=== PATIENT | male | born 1940 | race Native Hawaiian/Other Pacific Islander ===

== ENCOUNTER 2017-01-06 08:08 | Outpatient (CLI) | payer OTHER, BC ==
[~2017-01-06 08:08] MED LIST: ALLEGRA ALRG180 M1 PO; AMLO5TAB PO; AVAPRO75 MG PO; BENZONATATE200 MG PO; CEFTIN250 MG OR; CELEBREX200 MG PO; CLARITIN10 MG PO; DOXA2TAB PO; ENDOCET1 TA1 PO; ENTERIC COATED325 MG PO; FERROUS SULF325 M1 PO; FISH OIL1000 M1 OR; FLAXSEED OIL1000 M1 OR; FLUT0.05 NAS; GLUCOSAMINE CHONDRO1 OR; IRBESARTAN75 MG OR; LIPITOR20 MG PO; METF500T PO; NASONEX50 MCG/AC; PRILOSEC20 MG OR; SIMV20TA2 PO; Z-PAK PO
== END 2017-01-06 09:08 | disposition home or self-care (01) ==
LOC: LABW 08:08
PROVIDERS: Specialist
DX: E78.2 Mixed hyperlipidemia (principal); Z79.899 Other long term (current) drug therapy; Z51.81 Encounter for therapeutic drug level monitoring
CPT/HCPCS: 36415; 80061; 80076

== ENCOUNTER 2017-02-08 08:56 | Outpatient (CLI) | payer OTHER, BC ==
[2017-02-08 10:05] LABS: PLATELET COUNT 192 K/uL (142-355)
[2017-02-08 11:22] LABS: POTASSIUM 4.2 mmol/L (3.6-5.2); SODIUM 138 mmol/L (136-145)
== END 2017-02-08 19:19 | disposition home or self-care (01) ==
LOC: LABW 08:56
PROVIDERS: Specialist
DX: Z01.810 Encounter for preprocedural cardiovascular examination (principal); R93.1 Abnormal findings on diagnostic imaging of heart and coronary circulation
CPT/HCPCS: 36415; 80053; 85027

== ENCOUNTER 2017-02-15 08:41 | Outpatient (CLI) | payer OTHER, BC ==
[2017-02-15 09:26] LABS: POTASSIUM 4.4 mmol/L (3.6-5.2); SODIUM 139 mmol/L (136-145)
== END 2017-02-15 19:22 | disposition home or self-care (01) ==
LOC: LABW 08:41
PROVIDERS: Specialist
DX: R35.8 Other polyuria (principal)
CPT/HCPCS: 36415; 80048

== ENCOUNTER 2017-04-22 12:00 | Outpatient (CLI) | payer OTHER, BC | END 2017-04-22 19:18 | disposition home or self-care (01) | LOC: RAD 12:00 | DX: M25.511 Pain in right shoulder (principal) ==

== ENCOUNTER 2017-07-05 09:10 | Outpatient (CLI) | payer OTHER, BC | END 2017-07-05 10:10 | disposition home or self-care (01) | LOC: LABW 09:10 | PROVIDERS: Nurse Practitioner Adult Health | DX: I25.10 Atherosclerotic heart disease of native coronary artery without angina pectoris (principal); E78.2 Mixed hyperlipidemia; Z79.899 Other long term (current) drug therapy; Z51.81 Encounter for therapeutic drug level monitoring | CPT/HCPCS: 36415; 80061; 80076 ==

== ENCOUNTER 2017-12-23 05:43 | Outpatient (CLI) | payer OTHER, BC ==
[2017-12-23 06:42] LABS: PLATELET COUNT 190 K/uL (142-355)
== END 2017-12-23 05:54 | disposition home or self-care (01) ==
LOC: LABW 05:43
PROVIDERS: Internal Medicine
DX: E11.9 Type 2 diabetes mellitus without complications (principal); Z12.5 Encounter for screening for malignant neoplasm of prostate; E78.00 Pure hypercholesterolemia, unspecified
CPT/HCPCS: 36415; 80053; 80061; 81000; 82043; 82570; 83036; 84153; 84443; 85027

== ENCOUNTER 2018-07-18 07:52 | Outpatient (CLI) | payer OTHER, BC | END 2018-07-18 20:37 | disposition home or self-care (01) | LOC: LABW 07:52 | PROVIDERS: Nurse Practitioner Adult Health | DX: E78.2 Mixed hyperlipidemia (principal); Z79.899 Other long term (current) drug therapy | CPT/HCPCS: 36415; 80061; 80076 ==

== ENCOUNTER 2018-11-01 16:46 | Outpatient (CLI) | payer OTHER, BC ==
[2018-11-01 17:02] LABS: PLATELET COUNT 186 K/uL (142-355)
[2018-11-01 17:41] LABS: POTASSIUM 4.1 mmol/L (3.6-5.2)
== END 2018-11-01 22:04 | disposition home or self-care (01) ==
LOC: LABW 16:46
PROVIDERS: Internal Medicine
DX: Z00.00 Encounter for general adult medical examination without abnormal findings (principal); Z12.5 Encounter for screening for malignant neoplasm of prostate; E11.9 Type 2 diabetes mellitus without complications
CPT/HCPCS: 36415; 80053; 80061; 81000; 82043; 82570; 83036; 84153; 84439; 84443; 85027

== ENCOUNTER 2018-11-21 08:33 | Outpatient (CLI) | payer OTHER, BC | END 2018-11-21 18:58 | disposition home or self-care (01) | LOC: US 08:33 | DX: Z13.6 Encounter for screening for cardiovascular disorders (principal) ==

== ENCOUNTER 2019-07-08 08:12 | Outpatient (CLI) | payer OTHER, BC ==
[2019-07-08 08:35] LABS: PLATELET COUNT 179 K/uL (142-355)
[2019-07-08 08:50] LABS: POTASSIUM 4.3 mmol/L (3.6-5.2)
== END 2019-07-08 22:11 | disposition home or self-care (01) ==
LOC: LABW 08:12
PROVIDERS: Internal Medicine
DX: E11.9 Type 2 diabetes mellitus without complications (principal)
CPT/HCPCS: 36415; 80053; 80061; 81000; 82043; 82570; 83036; 84439; 84443; 85027

== ENCOUNTER 2020-01-15 08:22 | Outpatient (CLI) | payer OTHER, BC | END 2020-01-15 19:49 | disposition home or self-care (01) | LOC: LABW 08:22 | PROVIDERS: Nurse Practitioner Adult Health | DX: E78.2 Mixed hyperlipidemia (principal); Z79.899 Other long term (current) drug therapy | CPT/HCPCS: 36415; 80061; 80076 ==

== ENCOUNTER 2020-09-26 08:07 | Outpatient (CLI) | payer OTHER, BC ==
[2020-09-26 08:54] LABS: POTASSIUM 3.9 mmol/L (3.6-5.2)
[2020-09-26 09:50] LABS: PLATELET COUNT 157 K/uL (142-355)
== END 2020-09-26 20:17 | disposition home or self-care (01) ==
LOC: LABW 08:07
PROVIDERS: Internal Medicine
DX: E11.9 Type 2 diabetes mellitus without complications (principal)
CPT/HCPCS: 36415; 80053; 80061; 81000; 82043; 82570; 83036; 84439; 84443; 85027

== ENCOUNTER 2020-11-27 09:03 | Outpatient (CLI) | payer BC | END 2020-11-27 21:39 | disposition home or self-care (01) | LOC: LABW 09:03 | PROVIDERS: ATTEND Nurse Practitioner Adult Health | DX: E78.2 Mixed hyperlipidemia (principal); Z79.899 Other long term (current) drug therapy | CPT/HCPCS: 36415; 80061; 80076 ==

== ENCOUNTER 2021-05-28 09:49 | Outpatient (CLI) | payer BC | END 2021-05-28 22:12 | disposition home or self-care (01) | LOC: LAB 09:49 | PROVIDERS: ATTEND Internal Medicine | DX: Z00.00 Encounter for general adult medical examination without abnormal findings (principal); E11.9 Type 2 diabetes mellitus without complications; Z12.5 Encounter for screening for malignant neoplasm of prostate | CPT/HCPCS: 36415; 83036 ==

== ENCOUNTER 2021-09-16 08:31 | Outpatient (CLI) | payer BC ==
[2021-09-16 09:02] LABS: PLATELET COUNT 207 K/uL (142-355)
== END 2021-09-16 20:03 | disposition home or self-care (01) ==
LOC: LABW 08:31
PROVIDERS: ATTEND Internal Medicine
DX: E11.9 Type 2 diabetes mellitus without complications (principal)
CPT/HCPCS: 36415; 80053; 80061; 81000; 82043; 83036; 84439; 84443; 85027

== ENCOUNTER 2022-01-30 12:11 | Emergency (ER) | payer BC ==
[~2022-01-30] VITALS: Ht 177.8 cm; Wt 79.4 kg
[2022-01-30 12:51] LABS: PLATELET COUNT 145 K/uL (142-355)
[2022-01-30 13:04] LABS: POTASSIUM 4.3 mmol/L (3.6-5.2)
[2022-01-30 14:00] VITALS: BP 181/75; TEMP 98.20
== END 2022-01-30 14:00 | disposition home or self-care (01) ==
LOC: ED 12:11
PROVIDERS: Emergency Medicine
DX: M25.552 Pain in left hip (principal); R42 Dizziness and giddiness; R06.02 Shortness of breath; W18.2XXA Fall in (into) shower or empty bathtub, initial encounter; Y92.89 Other specified places as the place of occurrence of the external cause
CPT/HCPCS: 36600; 80053; 82805; 84484; 85027; 85610; 93005; 99283

== ENCOUNTER 2022-02-02 14:54 | Outpatient (CLI) | payer BC | END 2022-02-02 20:16 | disposition home or self-care (01) | LOC: LABW 14:54 | PROVIDERS: ATTEND Internal Medicine | DX: D64.9 Anemia, unspecified (principal); R63.4 Abnormal weight loss | CPT/HCPCS: 36415; 82150; 82607; 82728; 82747; 83540; 83550; 83690 ==

== ENCOUNTER 2022-02-03 13:09 | Outpatient (CLI) | payer BC | END 2022-02-03 19:04 | disposition home or self-care (01) | LOC: LAB 13:09 | PROVIDERS: ATTEND Internal Medicine | DX: D64.89 Other specified anemias (principal) | CPT/HCPCS: 82272 ==

== ENCOUNTER 2022-02-04 07:24 | Outpatient (CLI) | payer BC | END 2022-02-04 19:00 | disposition home or self-care (01) | LOC: CT 07:24 → LAB 07:24 → CT 08:00 | PROVIDERS: ATTEND Internal Medicine | DX: R41.82 Altered mental status, unspecified (principal); R10.32 Left lower quadrant pain; D64.89 Other specified anemias | CPT/HCPCS: 82272; Q9963 ==

== ENCOUNTER 2022-02-06 09:27 | Outpatient (CLI) | payer BC | END 2022-02-06 19:33 | disposition home or self-care (01) | LOC: MRI 09:27 | PROVIDERS: ATTEND Internal Medicine | DX: R41.82 Altered mental status, unspecified (principal) ==

== ENCOUNTER 2022-02-09 11:11 | Outpatient (CLI) | payer BC | END 2022-02-09 19:11 | disposition home or self-care (01) | LOC: LAB 11:11 | PROVIDERS: ATTEND Internal Medicine | DX: D64.89 Other specified anemias (principal) | CPT/HCPCS: 82272 ==

== ENCOUNTER 2022-02-18 08:52 | Emergency (ER) | payer BC ==
[~2022-02-18] VITALS: Ht 177.8 cm; Wt 97.1 kg
[2022-02-18 08:52] VITALS: TEMP 97.6
[2022-02-18 09:13] LABS: PLATELET COUNT 167 K/uL (142-355)
[2022-02-18 09:23] LABS: POTASSIUM 3.3 mmol/L (3.6-5.2)
[2022-02-18 09:29] LABS: PARTIAL THROMBOPLASTIN TIME 24.1 SECONDS (24.5-33.6)
[2022-02-18 10:33] VITALS: BP 162/75
== END 2022-02-18 11:24 | disposition short-term general hospital (02) ==
LOC: ED 08:52
PROVIDERS: Hospitalist
PROC: 0T9B70Z Drainage of Bladder with Drainage Device, Via Natural or Artificial Opening (ICD-10-PCS; principal; 2022-02-18)
DX: I63.89 Other cerebral infarction (principal); G81.91 Hemiplegia, unspecified affecting right dominant side; R29.810 Facial weakness; Z79.02 Long term (current) use of antithrombotics/antiplatelets; Z11.52 Encounter for screening for COVID-19
CPT/HCPCS: 51702; 80053; 80320; 81000; 82550; 83880; 84484; 85027; 85610; 85730; 87635; 92977; 93005; 96365; 96375; 99285; J2997; J3490; U0003

== ENCOUNTER 2022-02-24 15:41 | Inpatient (IN) | payer BC ==
[~2022-02-24] VITALS: Ht 179.1 cm; Wt 88.6 kg
[~2022-02-24 15:41] MED LIST changes: -LIPITOR20 MG PO; +LIPITOR40 MG PO
[2022-02-24 17:44] VITALS: BP 151/58; TEMP 98.4; Ht 179.1 cm; Wt 88.6 kg
[2022-02-24 20:04] VITALS: BP 112/48; TEMP 98.3
[2022-02-25 08:13] VITALS: BP 142/61; TEMP 97.6
[2022-02-25] MEDS ORDERED: FEROSUL325 MG PO (09:17)
[2022-02-25] MEDS ORDERED: CYAN10009 IM (09:19)
[2022-02-25] MEDS ORDERED: FINASTERIDE5 MG PO (09:21)
[2022-02-25] MEDS ORDERED: PANTOPRAZOLE SO40 M1 PO (09:24)
[2022-02-25] MEDS ORDERED: GLUCERN1 PO (09:25)
[2022-02-25 20:00] VITALS: BP 157/79; TEMP 98.2
[2022-02-26 07:18] VITALS: BP 145/63; TEMP 98.5
[2022-02-26 20:00] VITALS: BP 151/72; TEMP 98.3
[2022-02-27 08:00] VITALS: BP 150/65; TEMP 98.5
[2022-02-27 20:06] VITALS: BP 149/65; TEMP 97.9
[2022-02-28 08:00] VITALS: BP 154/71; TEMP 98
[2022-02-28 20:00] VITALS: BP 144/60; TEMP 98.8
[2022-03-01 07:52] VITALS: BP 161/65; TEMP 97.7
[2022-03-01 19:50] VITALS: BP 157/61; TEMP 98.4
[2022-03-02 08:00] VITALS: BP 153/71; TEMP 98.4
[2022-03-02 20:00] VITALS: BP 144/59; TEMP 99.3
[2022-03-03 08:00] VITALS: BP 147/59; TEMP 98.7
[2022-03-03 20:00] VITALS: BP 142/64; TEMP 99.4
[2022-03-04 08:00] VITALS: BP 131/69; TEMP 98.4
[2022-03-04 19:50] VITALS: BP 140/62; TEMP 99.1
[2022-03-05 08:00] VITALS: BP 129/70; TEMP 98.1
[2022-03-05 19:55] VITALS: BP 144/61; TEMP 97.8
[2022-03-06 08:00] VITALS: BP 137/70; TEMP 98.2
[2022-03-06 20:00] VITALS: BP 158/72; TEMP 98.8
[2022-03-07 08:00] VITALS: BP 139/71; TEMP 99.1
[2022-03-07 20:00] VITALS: BP 134/74; TEMP 99
[2022-03-08 08:00] VITALS: BP 175/59; TEMP 98.2
[2022-03-08 20:00] VITALS: BP 138/66; TEMP 98.8
[2022-03-09 08:00] VITALS: BP 140/66; TEMP 98.7
[2022-03-09 20:00] VITALS: BP 153/64; TEMP 99
[2022-03-10 08:00] VITALS: BP 146/65; TEMP 97.4
[2022-03-10 20:00] VITALS: BP 129/53; TEMP 98.8
[2022-03-11 08:00] VITALS: BP 139/67; TEMP 98.6
[2022-03-11 20:00] VITALS: BP 121/63; TEMP 99.5
[2022-03-12 08:00] VITALS: BP 148/72; TEMP 97.9
[2022-03-12 20:00] VITALS: BP 138/51; TEMP 98.1
[2022-03-13 19:57] VITALS: BP 141/65; TEMP 98.7
[2022-03-14 07:55] VITALS: BP 131/57; TEMP 98.6
[2022-03-14 19:39] VITALS: BP 107/44; TEMP 99.6
[2022-03-15 05:52] LABS: PLATELET COUNT 207 K/uL (142-355)
[2022-03-15 05:57] LABS: POTASSIUM 3.6 mmol/L (3.6-5.2)
[2022-03-15 08:30] VITALS: BP 122/52; TEMP 97.8
[2022-03-15 09:20] VITALS: BP 122/52; TEMP 97.8
[2022-03-15 11:20] VITALS: BP 153/65; TEMP 98.2
== END 2022-03-15 19:27 | disposition short-term general hospital (02) | DRG 65 ==
LOC: SWING 15:41 → MED/SURG 16:19
PROVIDERS: ADMIT Internal Medicine Endocrinology, Diabetes & Metabolism; ATTEND Internal Medicine Endocrinology, Diabetes & Metabolism
DX: I63.19 Cerebral infarction due to embolism of other precerebral artery (principal); I69.351 Hemiplegia and hemiparesis following cerebral infarction affecting right dominant side; E11.9 Type 2 diabetes mellitus without complications; I44.0 Atrioventricular block, first degree; D64.9 Anemia, unspecified; R26.2 Difficulty in walking, not elsewhere classified; R26.81 Unsteadiness on feet; M62.81 Muscle weakness (generalized); Z74.1 Need for assistance with personal care; R48.8 Other symbolic dysfunctions; I10 Essential (primary) hypertension; E78.5 Hyperlipidemia, unspecified
CPT/HCPCS: 36415; 80048; 85014; 85018; 85027; 85610; 87081; J2405; J3490

== ENCOUNTER 2022-03-12 13:00 | Outpatient (CLI) | payer BC ==
[~2022-03-12 13:00] MED LIST changes: +CYAN10009 IM; +FEROSUL325 MG PO; +FINASTERIDE5 MG PO; +GLUCERN1 PO; +PANTOPRAZOLE SO40 M1 PO
== END 2022-03-12 18:00 | disposition home or self-care (01) ==
LOC: CT 13:00
PROVIDERS: ATTEND Physician Assistant
DX: R93.5 Abnormal findings on diagnostic imaging of other abdominal regions, including retroperitoneum (principal); R63.4 Abnormal weight loss
CPT/HCPCS: Q9963

== ENCOUNTER 2022-03-15 19:27 | Inpatient (IN) | payer BC ==
[~2022-03-15] VITALS: Ht 177.8 cm; Wt 87.8 kg
[2022-03-15 20:12] VITALS: BP 130/63; TEMP 98.5
[2022-03-15 20:57] VITALS: BP 130/63; TEMP 98.5; Ht 177.8 cm; Wt 87.8 kg
[2022-03-15 22:57] VITALS: BP 142/55; TEMP 97.4
[2022-03-15 23:15] VITALS: BP 147/59; TEMP 97.8
[2022-03-16] VITALS (13 sets, daily range): BP systolic 119–188; BP diastolic 61–90; TEMP 97.2–99.3
[2022-03-17] VITALS: BP 152/71; TEMP 98.8
[2022-03-17 04:00] VITALS: BP 152/73; TEMP 97.5
[2022-03-17 08:00] VITALS: BP 153/75; TEMP 98.3
[2022-03-17 08:55] LABS: PLATELET COUNT 172 K/uL (142-355)
[2022-03-17 09:03] LABS: POTASSIUM 3.8 mmol/L (3.6-5.2)
[2022-03-17 12:00] VITALS: BP 144/72; TEMP 98
[2022-03-17 16:00] VITALS: BP 158/73; TEMP 99.1
== END 2022-03-17 16:54 | disposition home or self-care (01) | DRG 378 ==
LOC: MED/SURG 19:27
PROVIDERS: ADMIT Internal Medicine; ATTEND Internal Medicine
PROC: 30233N1 Transfusion of Nonautologous Red Blood Cells into Peripheral Vein, Percutaneous Approach (ICD-10-PCS; principal; 2022-03-15)
PROC: 30233N1 Transfusion of Nonautologous Red Blood Cells into Peripheral Vein, Percutaneous Approach (ICD-10-PCS; 2022-03-16)
DX: K92.2 Gastrointestinal hemorrhage, unspecified (principal); D62 Acute posthemorrhagic anemia; R04.2 Hemoptysis; I10 Essential (primary) hypertension; E78.49 Other hyperlipidemia; N40.0 Benign prostatic hyperplasia without lower urinary tract symptoms; K21.9 Gastro-esophageal reflux disease without esophagitis; K31.7 Polyp of stomach and duodenum; D49.0 Neoplasm of unspecified behavior of digestive system; K92.1 Melena
CPT/HCPCS: 36415; 80048; 83880; 85014; 85018; 85027; 86850; 86900; 86901; 86922; P9016

== ENCOUNTER 2022-03-31 21:59 | Emergency (ER) | payer BC ==
[~2022-03-31] VITALS: Ht 177.8 cm; Wt 87.5 kg
[2022-03-31 22:11] LABS: PLATELET COUNT 239 K/uL (142-355)
[2022-03-31 22:17] LABS: POTASSIUM 3.4 mmol/L (3.6-5.2)
[2022-04-01 00:45] VITALS: BP 139/71; TEMP 97.8
== END 2022-04-01 00:50 | disposition short-term general hospital (02) ==
LOC: ED 21:59
PROVIDERS: Emergency Medicine
DX: I26.99 Other pulmonary embolism without acute cor pulmonale (principal); J90 Pleural effusion, not elsewhere classified; J93.83 Other pneumothorax; Z11.52 Encounter for screening for COVID-19
CPT/HCPCS: 80053; 84484; 85027; 85379; 85610; 87040; 87635; 93005; 96365; 96375; 99285; J1956; J2060; Q9963; U0003

== ENCOUNTER 2022-04-07 03:57 | Emergency (ER) | payer BC ==
[~2022-04-07] VITALS: Ht 177.8 cm; Wt 87.5 kg
[2022-04-07 04:40] LABS: POTASSIUM 3.6 mmol/L (3.6-5.2)
[2022-04-07 05:01] LABS: PLATELET COUNT 263 K/uL (142-355)
[2022-04-07 07:00] VITALS: BP 108/51
== END 2022-04-07 07:40 | disposition short-term general hospital (02) ==
LOC: ED 03:57
PROVIDERS: Emergency Medicine Emergency Medical Services
PROC: 30233N1 Transfusion of Nonautologous Red Blood Cells into Peripheral Vein, Percutaneous Approach (ICD-10-PCS; principal; 2022-04-07)
DX: K92.2 Gastrointestinal hemorrhage, unspecified (principal); J90 Pleural effusion, not elsewhere classified; R06.89 Other abnormalities of breathing; Z98.890 Other specified postprocedural states
CPT/HCPCS: 36430; 36600; 80053; 82272; 82805; 82948; 83735; 83880; 84484; 85027; 85610; 86850; 86900; 86901; 86922; 93005; 96360; 99285; P9016